=== PATIENT | male | born 1940 ===

== ENCOUNTER 2017-01-17 18:52 | Inpatient (IN) | payer OTHER ==
[2017-01-17 20:05] LABS: BASOPHILS # (AUTO) 0.1 X10^3/uL (0.0-0.1); EOSINOPHILS # (AUTO) 0.3 x10^3/uL (0.0-0.2); EOSINOPHILS % (AUTO) 3.6 % (0.9-2.9); HEMATOCRIT 39.6 % (42.0-54.0); HEMOGLOBIN 13.9 g/dL (13.5-18.0); LYMPHOCYTES # (AUTO) 3.4 X10^3/uL (1.3-2.9); LYMPHOCYTES % (AUTO) 35.2 % (21.0-51.0); MEAN CORPUSCULAR VOLUME 85.6 fL (80.0-100.0); MEAN PLATELET VOLUME 7.7 fL (7.4-11.0); MONOCYTES % (AUTO) 10.7 % (0.0-13.0); NEUTROPHILS # (AUTO) 4.8 x10^3/uL (2.2-4.8); NEUTROPHILS % (AUTO) 49.5 % (42.0-75.0); PLATELET COUNT 231 X10^3/uL (150.0-450.0); RED BLOOD COUNT 4.63 X10^6/uL (4.7-6.0); WHITE BLOOD COUNT 9.6 X10^3/uL (3.6-10.0)
[2017-01-17 20:18] LABS: ALANINE AMINOTRANSFERASE 27 Units/L (12-78); ALBUMIN 3.7 g/dL (3.4-5.0); ALKALINE PHOSPHATASE 62 Units/L (46-116); ASPARTATE AMINO TRANSFERASE 21 Units/L (15-37); BLOOD UREA NITROGEN 18 mg/dL (7-18); CALCIUM 9.3 mg/dL (8.5-10.1); CARBON DIOXIDE 28.5 mmol/L (21-32); CHLORIDE 95 mmol/L (98-107); CREATININE 1.35 mg/dL (0.70-1.30); SODIUM 132 mmol/L (136-145); TOTAL PROTEIN 7.4 g/dL (6.4-8.2); URIC ACID 4.6 mg/dL (3.5-7.2); eGFR BLACK RACES > 60 (>60); eGFR NON BLACK RACES 55 (>60)
[2017-01-17 20:35] VITALS: BMI 29.7
[2017-01-17 20:56] LABS: ERYTHROCYTE SEDIMENTATION RATE 26 MM/HOUR (0-15)
[2017-01-17] MEDS: TYLENOL 325 MG TAB PO PRN (22:27)
[2017-01-18 06:55] LABS: BASOPHILS # (AUTO) 0.1 X10^3/uL (0.0-0.1); BASOPHILS % (AUTO) 0.7 % (0.2-1.0); EOSINOPHILS # (AUTO) 0.3 x10^3/uL (0.0-0.2); EOSINOPHILS % (AUTO) 3.8 % (0.9-2.9); HEMATOCRIT 37.4 % (42.0-54.0); HEMOGLOBIN 13.3 g/dL (13.5-18.0); LYMPHOCYTES # (AUTO) 2.4 X10^3/uL (1.3-2.9); LYMPHOCYTES % (AUTO) 29.4 % (21.0-51.0); MEAN CORPUSCULAR HEMOGLOBIN 29.9 pg (27.0-34.0); MEAN CORPUSCULAR HGB CONC 35.6 g/dL (33.0-35.0); MEAN CORPUSCULAR VOLUME 83.9 fL (80.0-100.0); MEAN PLATELET VOLUME 8.2 fL (7.4-11.0); MONOCYTES # (AUTO) 0.9 x10^3/uL (0.3-0.8); MONOCYTES % (AUTO) 11.8 % (0.0-13.0); NEUTROPHILS # (AUTO) 4.4 x10^3/uL (2.2-4.8); NEUTROPHILS % (AUTO) 54.3 % (42.0-75.0); PLATELET COUNT 216 X10^3/uL (150.0-450.0); RED BLOOD COUNT 4.46 X10^6/uL (4.7-6.0); RED CELL DISTRIBUTION WIDTH 15.1 % (11.6-16.5); WHITE BLOOD COUNT 8.1 X10^3/uL (3.6-10.0)
[2017-01-18 07:04] LABS: ALANINE AMINOTRANSFERASE 25 Units/L (12-78); ALBUMIN 3.4 g/dL (3.4-5.0); ALKALINE PHOSPHATASE 58 Units/L (46-116); ASPARTATE AMINO TRANSFERASE 16 Units/L (15-37); BLOOD UREA NITROGEN 17 mg/dL (7-18); CALCIUM 9.3 mg/dL (8.5-10.1); CARBON DIOXIDE 27.5 mmol/L (21-32); CHLORIDE 98 mmol/L (98-107); CREATININE 1.22 mg/dL (0.70-1.30); SODIUM 134 mmol/L (136-145); TOTAL PROTEIN 7.1 g/dL (6.4-8.2); eGFR BLACK RACES > 60 (>60); eGFR NON BLACK RACES > 60 (>60)
[2017-01-18] MEDS ORDERED: ROCEPHIN VIAL 1 GM 1 GM in NS 50 ML IV + SPIKE MINIBAG* 50 ML IV SCH (09:00)
[2017-01-18] MEDS ORDERED: ROCEPHIN VIAL 1 GM ONE (09:26)
[2017-01-18] MEDS ORDERED: NS 100 ML IV + SPIKE MINIBAG* 100 ML IV ONE (09:27)
[2017-01-18] MEDS ORDERED: NS 250 ML IV 250 ML IV ONE (09:36)
[2017-01-18] MEDS ORDERED: NS 250 ML IV 250 ML IV SCH (10:00)
[2017-01-18] MEDS ORDERED: PHARMACY CONSULT - DOSE _____ XX SCH (12:00)
[2017-01-18] MEDS: MUCOMYST 20% 200 MG/ML PO SCH ×2 (12:13→20:36)
[2017-01-18] MEDS: NS 1000 ML 1,000 ML IV SCH (12:13)
[2017-01-18] MEDS ORDERED: PATIENT'S HOME MEDICATION (Potassium Chloride [Klor-Con 10] 10 MEQ) PO SCH (12:15)
[2017-01-18] MEDS: ASPIRIN EC 81 MG PO SCH (13:33)
[2017-01-18] MEDS: PLAVIX PO SCH (13:34)
[2017-01-18] MEDS: COREG TAB 3.125 MG PO SCH ×2 (13:35→20:30)
[2017-01-18] MEDS: LASIX PO SCH (13:35)
[2017-01-18] MEDS ORDERED: VANCOMYCIN 1 GM PREMIX (ADDVANTAGE) 250 ML IV NR (14:00)
[2017-01-18] MEDS: ZOSYN VIAL 3.375 GM 3.375 GM in NS 100 ML IV + SPIKE MINIBAG* 100 ML IV SCH ×2 (16:11→20:30)
[2017-01-18] MEDS: NORCO 5/325 MG TAB PO PRN (20:30)
[2017-01-18] MEDS: VANCOMYCIN HCL 500 MG VIAL 500 MG in NS 100 ML IV + SPIKE MINIBAG* 100 ML IV SCH (20:30)
[2017-01-18] MEDS: NEURONTIN CAP 100 MG PO SCH (20:37)
--- NOTE | 2017-01-18 21:36 | DR.H&P ---
H&P - History & Physical for Day of: H&P Date: 01/17/17 - Chief Complaint Chief Complaint: RLE REDNESS, WOUND TO 2ND DIGIT RIGHT FOOT - Allergies Allergies/Adverse Reactions: Allergies Allergy/AdvReac Type Severity Reaction Status Date / Time No Known Drug Allergies Allergy Verified 01/17/17 20:08 - History of Present Illness History of Present Illness: IS A 76 YEAR OLD WHITE MALE WHO PRESENTED WITH COMPLAINTS OF RIGHT LOWER EXTREMITY EDEMA, REDNESS, PAIN, AND DRAINAGE. HE ALSO COMPLAINTED OF A WOUND TO THE SECOND DIGIT ON THE RIGHT FOOT. PATIENT REPORTS THAT WOUND HAS BEEN PRESENT FOR THE PAST 3-4 MONTHS. HE REPORTS THAT WOUND HAS RECENTLY STARTED WITH PURULENT DRAINAGE. ON EXAMINATION, LUNGS WERE NOTED CLEAR TO AUSCULTATION. ABDOMEN IS ROUND, SOFT, AND NON-TENDER WITH NORMAL BOWEL SOUNDS NOTED TO ALL QUADRANTS. BILATERAL LOWER EXTREMITIES ARE NOTED WITH 2+ PITTING EDEMA. RIGHT LOWER EXTREMITY NOTED WITH ERRYTHEMA AND CLEAR DRAINAGE. ABRASION NOTED TO SECOND DIGIT ON RIGHT FOOT. PURULENT DRAINAGE NOTED. ON ARRIVAL, VITAL SIGNS WERE 97.8-89-18-99%-110/77. LABS WERE OBTAINED UPON ADMISSION. ABNORMAL LAB VALUES INCLUDE THE FOLLOWING: RBC 4.63, HCT 39.6, EOS% 3.6, LYMPH# 3.4, MONO# 1.0, EOS# 0.3, ESR 26, SODIUM 132, CHLORIDE 95, CREATININE 1.35, GFR 55, TOTAL BILIRUBIN 1.10, CRP 30.50, A/G RATIO 1.0. WOUND CULTURES OF SECOND DIGIT TO RIGHT FOOT WERE OBTAINED AND SENT TO LAB. WE PLANNED TO FOLLOW UP WITH AM LABS AND CONTINUE TO MONITOR PATIENT. - Past Medical History Past Medical History: Arthritis, CHF, Coronary Artery Disease, Diabetes, GERD, Hypertension, Kidney Stones - Past Surgical History Surgical History: No History - Family History Family Medical History: Diabetes Mellitus, Hypertension - Social History Does patient currently use any type of tobacco product: No Have you used tobacco products in the last 12 months: No Type of Tobacco Use: None Does any household member use tobacco: No Alcohol Use: None Drug Use: None - Medications Home Medications: Aspirin EC [ASPIRIN EC 81 MG *] 81 mg PO DAILY 01/17/17 [History Confirmed 01/17] Carvedilol [COREG TAB 3.125 MG *] 3.125 mg PO BID 01/17/17 [History Confirmed ] Clopidogrel Bisulfate [PLAVIX TAB 75 MG *] 75 mg PO DAILY 01/17/17 [History Confirmed 01/17/17] Furosemide [LASIX TAB 40 MG *] 40 mg PO DAILY 01/17/17 [History Confirmed ] Gabapentin [NEURONTIN CAP 100 MG *] 100 mg PO HS 01/17/17 [History Confirmed ] Glimepiride [Glimepiride 2 mg] 2 mg PO BID 01/17/17 [History Confirmed 01/17/17] Lisinopril 2.5 mg PO DAILY 01/17/17 [History Confirmed 01/17/17] Metformin HCl [GLUCOPHAGE 500 MG *] 500 mg PO BID 01/17/17 [History Confirmed ] Potassium Chloride [Klor-Con 10] 10 meq PO DAILY 01/17/17 [History Confirmed ] - Review of Systems Constitutional: Fever Eyes: No Symptoms Reported. denies: Vision Change, Conjunctivae Inflammation, Eyelid Inflammation ENT: No Symptoms Reported. denies: Ear Pain, Ear Discharge, Nose Discharge, Nose Congestion Respiratory: No Symptoms Reported. denies: Shortness of Breath, Sputum, Wheezing Cardiovascular: Edema. denies: Chest Pain, Palpitations, Orthopnea (BILATER LOWER EXTREMITY ), Light Headedness Gastrointestinal: No Symptoms Reported. denies: Nausea, Vomiting, Abdominal Pain, Diarrhea, Constipation, Melena, Hematochezia Genitourinary: No Symptoms Reported Musculoskeletal: See HPI, Leg Pain, Foot Pain. denies: Arm Pain, Back Pain, Hand Pain Skin: See HPI, Lesions, Bruising, Wound. denies: Jaundice Neurological: No Symptoms Reported. denies: Change in Speech, Confusion, Seizures - Physical Exam Vital Signs: Temperature 98.2 F Pulse Rate [Left Dorsalis 96 Pedis] Pulse Rate [Right] 108 Respiratory Rate 20 Blood Pressure [Right Arm] 122/78 O2 Sat by Pulse Oximetry 97 Oriented: Normal Eyes: Normal. negative: Blurred Vision, Diplopia, Discharge, Photophobia Ear: Normal. negative: Swelling, Ecchymosis, Hemotypanum, Abrasion, Laceration Nose: Normal. negative: Discharge Throat: Normal Respiratory: Clear Throughout Cardiovascular: Edema (BIALTERAL LOWER EXTREMITY 2+ PITTING EDMA ) : Normal. negative: Hematuria, Testicular Pain, Bleeding Auscultation: Bowel Sounds: Normal Palpation: Normal Tenderness: Normal Skin: Red, Tender, Wound (RIGHT LOWER EXTREMITY, SECOND DIGIT RIGHT FOOT ), Bruising (SCATTERED ) Musculoskeletal: Normal Psychiatric: Normal Mood Description: Calm Affect: Normal Speech Pattern: Clear - Assessment/Plan (1) Cellulitis of right lower extremity Status: Acute Plan: ROCEPHIN 1GM IV DAILY, CONTINUE TO MONITOR (2) Open wound of second toe of right foot Qualifiers: Encounter type: initial encounter Qualified Code(s): S91.104A - Unspecified open wound of right lesser toe(s) without damage to nail, initial encounter Status: Acute Plan: ROCEPHIN 1GM IV DAILY, WOUND CARE, CONTINUE TO MONITOR
[2017-01-19] MEDS: ZOSYN VIAL 3.375 GM 3.375 GM in NS 100 ML IV + SPIKE MINIBAG* 100 ML IV SCH (03:04)
[2017-01-19] MEDS: NS 1000 ML 1,000 ML IV SCH ×3 (04:30→22:44)
[2017-01-19] MEDS ORDERED: NS 1000 ML 1,000 ML IV ONE (05:00)
[2017-01-19 05:37] LABS: BASOPHILS # (AUTO) 0.1 X10^3/uL (0.0-0.1); EOSINOPHILS # (AUTO) 0.4 x10^3/uL (0.0-0.2); EOSINOPHILS % (AUTO) 5.6 % (0.9-2.9); HEMOGLOBIN 12.5 g/dL (13.5-18.0); LYMPHOCYTES # (AUTO) 1.7 X10^3/uL (1.3-2.9); LYMPHOCYTES % (AUTO) 27.4 % (21.0-51.0); MEAN CORPUSCULAR HEMOGLOBIN 30.2 pg (27.0-34.0); MEAN CORPUSCULAR HGB CONC 35.8 g/dL (33.0-35.0); MEAN CORPUSCULAR VOLUME 84.4 fL (80.0-100.0); MEAN PLATELET VOLUME 7.9 fL (7.4-11.0); MONOCYTES # (AUTO) 0.8 x10^3/uL (0.3-0.8); MONOCYTES % (AUTO) 12.2 % (0.0-13.0); NEUTROPHILS # (AUTO) 3.4 x10^3/uL (2.2-4.8); NEUTROPHILS % (AUTO) 53.8 % (42.0-75.0); PLATELET COUNT 200 X10^3/uL (150.0-450.0); RED BLOOD COUNT 4.15 X10^6/uL (4.7-6.0); RED CELL DISTRIBUTION WIDTH 15.4 % (11.6-16.5); WHITE BLOOD COUNT 6.3 X10^3/uL (3.6-10.0)
[2017-01-19 05:46] LABS: ALANINE AMINOTRANSFERASE 24 Units/L (12-78); ALBUMIN 3.2 g/dL (3.4-5.0); ALKALINE PHOSPHATASE 52 Units/L (46-116); ASPARTATE AMINO TRANSFERASE 18 Units/L (15-37); BLOOD UREA NITROGEN 18 mg/dL (7-18); CALCIUM 8.6 mg/dL (8.5-10.1); CARBON DIOXIDE 26.1 mmol/L (21-32); CHLORIDE 101 mmol/L (98-107); COR CA(FOR HYPOALB) 9.2 mg/dL (8.5-10.1); CREATININE 1.38 mg/dL (0.70-1.30); SODIUM 136 mmol/L (136-145); TOTAL PROTEIN 6.6 g/dL (6.4-8.2); eGFR BLACK RACES > 60 (>60); eGFR NON BLACK RACES 53 (>60)
[2017-01-19] MEDS ORDERED: ZOSYN VIAL 3.375 GM IV ONE (08:12)
[2017-01-19] MEDS ORDERED: NS 100 ML IV + SPIKE MINIBAG* 200 ML IV ONE (08:14)
[2017-01-19] MEDS: VANCOMYCIN HCL 500 MG VIAL 500 MG in NS 100 ML IV + SPIKE MINIBAG* 100 ML IV SCH (08:36)
[2017-01-19] MEDS ORDERED: LISINOPRIL 2.5 MG PO SCH (09:00)
[2017-01-19] MEDS ORDERED: ROCEPHIN VIAL 1 GM 1 GM in NS 100 ML IV + SPIKE MINIBAG* 100 ML IV SCH (09:00)
[2017-01-19] MEDS ORDERED: PHARMACY CONSULT - DOSE _____ XX SCH (10:00)
[2017-01-19] MEDS: MERREM VIAL 1,000 MG in NS 100 ML IV 100 ML IV SCH ×3 (10:29→21:46)
[2017-01-19] MEDS: GENTAMICIN TOPICAL CRM TOP SCH ×2 (10:29→22:02)
[2017-01-19] MEDS ORDERED: NS 100 ML IV 100 ML IV ONE (11:11)
[2017-01-19] MEDS: LASIX PO SCH (14:24)
[2017-01-19] MEDS: PLAVIX PO SCH (14:25)
[2017-01-19] MEDS: MICRO K EXTEN CAP 10 MEQ PO SCH (14:25)
[2017-01-19] MEDS: ZESTRIL TAB 5 MG PO SCH (14:26)
[2017-01-19] MEDS: ASPIRIN EC 81 MG PO SCH (14:26)
[2017-01-19] MEDS: COREG TAB 3.125 MG PO SCH ×2 (14:27→21:47)
[2017-01-19] MEDS: MUCOMYST 20% 200 MG/ML PO SCH ×2 (14:27→21:56)
[2017-01-19] MEDS: NORCO 5/325 MG TAB PO PRN ×2 (16:03→21:57)
--- NOTE | 2017-01-19 17:50 | PCM.PROG ---
Progress Note - Progress Note for Day of Date: 01/18/17 - Subjective Subjective: WAS ADMITTED FOR LOWER EXTREMITY CELLULITIS AND A WOUND TO THE SECOND DIGIT ON THE RIGHT FOOT. TODAY, PATIENT IS ALERT AND ORIENTED, SITTING UP ON SIDE OF BED ON MORNING ROUNDS. PATIENT'S IS AT BEDSIDE. HE CONTINUES WITH COMPLAINTS OF PAIN TO THE RIGHT LEG. ON EXAMINATION, RIGHT LEG IS NOTED WITH ERRYTHEMA. THERE IS PURULENT DRAINAGE NOTED TO WOUND. HIS VITAL SIGNS THIS MORNING ARE 98.1-103-20-97%-117/76. ABNORMAL LAB VALUES INCLUDE THE FOLLOWING: RBC 4.46, HGB 13.3, HCT 37.4, CREATININE 1.38, SODIUM 134. WOUND CULTURE IS PENDING. GRAM STAIN REPORTS MODERATE GROWTH OF GRAM POSITIVE COCCI AND MANY GRAM NEGATIVE DIPLOCOCCI. WE ARE AWAITING FINAL CULTURE REPORT. TODAY, WE WILL DISCONTINUE ROCEPHIN AND START ZOSYN IV AND VANCOMYCIN IV. WE WILL START MUCOMYST 600MG PO BID. TOMORROW MORNING, WE WILL BOLUS PATIENT WITH 1 LITER OF NORMAL SALINE AND OBTAIN A CTA OF BILATERAL LOWER EXTREMITES. WE WILL FOLLOW UP WITH AM LABS AND CONTINUE TO MONITOR PATIENT. - Past Medical Family Social History Past Med/Fam/Surg Hx: No changes since H&P Allergies: Allergies No Known Drug Allergies Allergy (Verified 01/17/17 20:08) - Review of Systems ROS: No change since H&P - Vital Signs and I&O's Vital Signs: Temperature 97.9 F Pulse Rate [Left Dorsalis 96 Pedis] Pulse Rate [Right] 108 Respiratory Rate 20 Blood Pressure [Right Arm] 129/82 O2 Sat by Pulse Oximetry 97 Intake and Output: Intake & Output 01/17/17 01/18/17 01/19/17 01/20/17 11:59 11:59 11:59 11:59 Intake Total 550 2976 220 Balance 550 2976 220 - Physical Exam Oriented: Normal Eyes: Normal. negative: Blurred Vision, Diplopia, Discharge, Photophobia Ear: Normal. negative: Swelling, Ecchymosis, Hemotypanum, Abrasion, Laceration Nose: Normal. negative: Discharge Throat: Normal Respiratory: Normal Cardiovascular: Edema (BIALTERAL LOWER EXTREMITY 2+ PITTING EDMA ) : Normal. negative: Hematuria, Testicular Pain, Bleeding Auscultation: Bowel Sounds: Normal Palpation: Normal Tenderness: Normal Skin: Red, Tender, Wound (RIGHT LOWER EXTREMITY, SECOND DIGIT RIGHT FOOT ), Bruising (SCATTERED ) Musculoskeletal: Normal Psychiatric: Normal Mood Description: Calm Affect: Normal Speech Pattern: Clear, Appropriate - Laboratory and Diagnostics Result Diagrams: 01/19/17 04:30 01/19/17 04:30 Labs: 01/17/17 20:08 Foot - Right Gram Stain - Final 01/17/17 20:08 Foot - Right Wound Culture - Preliminary Pseudomonas Aeruginosa Laboratory WBC 6.3 X10^3/uL (3.6-10.0) 01/19/17 04:30 RBC 4.15 X10^6/uL (4.7-6.0) L 01/19/17 04:30 Hgb 12.5 g/dL (13.5-18.0) L 01/19/17 04:30 Hct 35.0 % (42.0-54.0) L 01/19/17 04:30 MCV 84.4 fL (80.0-100.0) 01/19/17 04:30 MCH 30.2 pg (27.0-34.0) 01/19/17 04:30 MCHC 35.8 g/dL (33.0-35.0) H 01/19/17 04:30 RDW 15.4 % (11.6-16.5) 01/19/17 04:30 Plt Count 200 X10^3/uL (150.0-450.0) 01/19/17 04:30 MPV 7.9 fL (7.4-11.0) 01/19/17 04:30 Neut % 53.8 % (42.0-75.0) 01/19/17 04:30 Lymph % 27.4 % (21.0-51.0) 01/19/17 04:30 [place] % 12.2 % (0.0-13.0) 01/19/17 04:30 Eos % 5.6 % (0.9-2.9) H 01/19/17 04:30 Baso % 1.0 % (0.2-1.0) 01/19/17 04:30 Neut # 3.4 x10^3/uL (2.2-4.8) 01/19/17 04:30 Lymph # 1.7 X10^3/uL (1.3-2.9) 01/19/17 04:30 [place] # 0.8 x10^3/uL (0.3-0.8) 01/19/17 04:30 Eos # 0.4 x10^3/uL (0.0-0.2) H 01/19/17 04:30 Baso # 0.1 X10^3/uL (0.0-0.1) 01/19/17 04:30 Absolute Nucleated RBC 0.0 /100WBC 01/19/17 04:30 ESR 18 MM/HOUR (0-15) H 01/19/17 04:30 Sodium 136 mmol/L (136-145) 01/19/17 04:30 Corrected Sodium TNP 01/19/17 04:30 Potassium 3.9 mmol/L (3.5-5.1) 01/19/17 04:30 Chloride 101 mmol/L (98-107) 01/19/17 04:30 Carbon Dioxide 26.1 mmol/L (21-32) 01/19/17 04:30 BUN 18 mg/dL (7-18) 01/19/17 04:30 Creatinine 1.38 mg/dL (0.70-1.30) H 01/19/17 04:30 Est GFR (MDRD) Af Amer > 60 (>60) 01/19/17 04:30 Est GFR (MDRD) Non-Af 53 (>60) L 01/19/17 04:30 Glucose 105 mg/dL (65-99) H 01/19/17 04:30 POC Glucose (mg/dL) 109 mg/dL (65-99) H 01/19/17 11:51 Uric Acid 4.6 mg/dL (3.5-7.2) 01/17/17 19:54 Calcium 8.6 mg/dL (8.5-10.1) 01/19/17 04:30 Corrected Calcium 9.2 mg/dL (8.5-10.1) 01/19/17 04:30 Total Bilirubin 0.90 mg/dL (0.2-1.0) 01/19/17 04:30 AST 18 Units/L (15-37) 01/19/17 04:30 ALT 24 Units/L (12-78) 01/19/17 04:30 Alkaline Phosphatase 52 Units/L (46-116) 01/19/17 04:30 C-Reactive Protein 28.60 mg/L (0-3.0) H 01/19/17 04:30 Total Protein 6.6 g/dL (6.4-8.2) 01/19/17 04:30 Albumin 3.2 g/dL (3.4-5.0) L 01/19/17 04:30 Globulin 3.4 g/dL (2.5-4.5) 01/19/17 04:30 Albumin/Globulin Ratio 0.9 Ratio (1.1-2.1) L 01/19/17 04:30 - Plan (1) Cellulitis of right lower extremity Status: Acute Plan: ZOSYN IV, VANCOMYCIN IV, OBTAIN CTA OF BILATERAL LOWER EXTREMITIES, CONTINUE TO MONITOR (2) Open wound of second toe of right foot Status: Acute Qualifiers: Encounter type: initial encounter Qualified Code(s): S91.104A - Unspecified open wound of right lesser toe(s) without damage to nail, initial encounter Plan: ZOSYN IV, VANCOMYCIN IV, OBTAIN CTA OF BILATERAL LOWER EXTREMITIES, CONTINUE TO MONITOR
[2017-01-19] MEDS: NEURONTIN CAP 100 MG PO SCH (21:47)
[2017-01-20] MEDS: MERREM VIAL 1,000 MG in NS 100 ML IV 100 ML IV SCH ×3 (05:34→21:18)
[2017-01-20 06:18] LABS: BASOPHILS # (AUTO) 0.1 X10^3/uL (0.0-0.1); EOSINOPHILS # (AUTO) 0.5 x10^3/uL (0.0-0.2); EOSINOPHILS % (AUTO) 7.7 % (0.9-2.9); HEMATOCRIT 35.3 % (42.0-54.0); HEMOGLOBIN 12.3 g/dL (13.5-18.0); LYMPHOCYTES # (AUTO) 1.9 X10^3/uL (1.3-2.9); LYMPHOCYTES % (AUTO) 27.5 % (21.0-51.0); MEAN CORPUSCULAR HEMOGLOBIN 29.7 pg (27.0-34.0); MEAN CORPUSCULAR HGB CONC 34.9 g/dL (33.0-35.0); MEAN CORPUSCULAR VOLUME 85.2 fL (80.0-100.0); MEAN PLATELET VOLUME 7.9 fL (7.4-11.0); MONOCYTES # (AUTO) 0.9 x10^3/uL (0.3-0.8); MONOCYTES % (AUTO) 12.4 % (0.0-13.0); NEUTROPHILS # (AUTO) 3.5 x10^3/uL (2.2-4.8); NEUTROPHILS % (AUTO) 51.4 % (42.0-75.0); PLATELET COUNT 209 X10^3/uL (150.0-450.0); RED BLOOD COUNT 4.14 X10^6/uL (4.7-6.0); RED CELL DISTRIBUTION WIDTH 15.5 % (11.6-16.5); WHITE BLOOD COUNT 6.9 X10^3/uL (3.6-10.0)
[2017-01-20 06:29] LABS: ALANINE AMINOTRANSFERASE 25 Units/L (12-78); ALBUMIN 3.2 g/dL (3.4-5.0); ALKALINE PHOSPHATASE 55 Units/L (46-116); ASPARTATE AMINO TRANSFERASE 21 Units/L (15-37); BLOOD UREA NITROGEN 19 mg/dL (7-18); CALCIUM 8.6 mg/dL (8.5-10.1); CARBON DIOXIDE 28.7 mmol/L (21-32); CHLORIDE 103 mmol/L (98-107); COR CA(FOR HYPOALB) 9.2 mg/dL (8.5-10.1); COR NA(FOR HYPERGLY) 137 mmol/L (136-145); CREATININE 1.39 mg/dL (0.70-1.30); SODIUM 136 mmol/L (136-145); TOTAL PROTEIN 6.6 g/dL (6.4-8.2); eGFR BLACK RACES > 60 (>60); eGFR NON BLACK RACES 53 (>60)
[2017-01-20 07:35] LABS: ERYTHROCYTE SEDIMENTATION RATE 22 MM/HOUR (0-15)
[2017-01-20] MEDS: PLAVIX PO SCH (09:24)
[2017-01-20] MEDS: COREG TAB 3.125 MG PO SCH ×2 (09:24→21:18)
[2017-01-20] MEDS: ZESTRIL TAB 5 MG PO SCH (09:24)
[2017-01-20] MEDS: MICRO K EXTEN CAP 10 MEQ PO SCH (09:25)
[2017-01-20] MEDS: GENTAMICIN TOPICAL CRM TOP SCH ×2 (09:25→21:25)
[2017-01-20] MEDS: ASPIRIN EC 81 MG PO SCH (09:25)
[2017-01-20] MEDS: MUCOMYST 20% 200 MG/ML PO SCH (09:25)
[2017-01-20] MEDS: LASIX PO SCH (09:25)
[2017-01-20] MEDS: NS 1000 ML 1,000 ML IV SCH ×2 (12:06→23:58)
[2017-01-20] MEDS: NORCO 5/325 MG TAB PO PRN (18:49)
[2017-01-20] MEDS: NEURONTIN CAP 100 MG PO SCH ×2 (21:18→21:19)
[2017-01-21] MEDS: MERREM VIAL 1,000 MG in NS 100 ML IV 100 ML IV SCH ×3 (05:26→22:16)
[2017-01-21 06:11] LABS: BASOPHILS # (AUTO) 0.1 X10^3/uL (0.0-0.1); BASOPHILS % (AUTO) 0.8 % (0.2-1.0); EOSINOPHILS # (AUTO) 0.4 x10^3/uL (0.0-0.2); EOSINOPHILS % (AUTO) 4.9 % (0.9-2.9); HEMATOCRIT 36.2 % (42.0-54.0); HEMOGLOBIN 12.6 g/dL (13.5-18.0); LYMPHOCYTES # (AUTO) 2.3 X10^3/uL (1.3-2.9); LYMPHOCYTES % (AUTO) 30.1 % (21.0-51.0); MEAN CORPUSCULAR HEMOGLOBIN 29.8 pg (27.0-34.0); MEAN CORPUSCULAR HGB CONC 34.8 g/dL (33.0-35.0); MEAN CORPUSCULAR VOLUME 85.5 fL (80.0-100.0); MEAN PLATELET VOLUME 8.1 fL (7.4-11.0); NEUTROPHILS # (AUTO) 3.9 x10^3/uL (2.2-4.8); NEUTROPHILS % (AUTO) 51.2 % (42.0-75.0); PLATELET COUNT 213 X10^3/uL (150.0-450.0); RED BLOOD COUNT 4.23 X10^6/uL (4.7-6.0); RED CELL DISTRIBUTION WIDTH 15.1 % (11.6-16.5); WHITE BLOOD COUNT 7.5 X10^3/uL (3.6-10.0)
[2017-01-21 06:39] LABS: ALANINE AMINOTRANSFERASE 44 Units/L (12-78); ALBUMIN 3.3 g/dL (3.4-5.0); ALKALINE PHOSPHATASE 57 Units/L (46-116); ASPARTATE AMINO TRANSFERASE 30 Units/L (15-37); BLOOD UREA NITROGEN 16 mg/dL (7-18); CALCIUM 8.9 mg/dL (8.5-10.1); CARBON DIOXIDE 27.7 mmol/L (21-32); CHLORIDE 101 mmol/L (98-107); COR CA(FOR HYPOALB) 9.5 mg/dL (8.5-10.1); COR NA(FOR HYPERGLY) 137 mmol/L (136-145); CREATININE 1.26 mg/dL (0.70-1.30); SODIUM 136 mmol/L (136-145); TOTAL PROTEIN 6.9 g/dL (6.4-8.2); eGFR BLACK RACES > 60 (>60); eGFR NON BLACK RACES 59 (>60)
[2017-01-21 07:18] LABS: ERYTHROCYTE SEDIMENTATION RATE 25 MM/HOUR (0-15)
[2017-01-21] MEDS: ZESTRIL TAB 5 MG PO SCH (08:55)
[2017-01-21] MEDS: ASPIRIN EC 81 MG PO SCH (08:55)
[2017-01-21] MEDS: MICRO K EXTEN CAP 10 MEQ PO SCH (08:55)
[2017-01-21] MEDS: LASIX PO SCH (08:55)
[2017-01-21] MEDS: COREG TAB 3.125 MG PO SCH ×2 (08:55→22:16)
[2017-01-21] MEDS: PLAVIX PO SCH (08:58)
[2017-01-21] MEDS: GENTAMICIN TOPICAL CRM TOP SCH ×2 (10:29→22:22)
[2017-01-21] MEDS: NORCO 5/325 MG TAB PO PRN ×2 (11:30→22:15)
[2017-01-21] MEDS: NS 1000 ML 1,000 ML IV SCH (15:46)
[2017-01-21] MEDS: NEURONTIN CAP 100 MG PO SCH (22:26)
[2017-01-22] MEDS: NS 1000 ML 1,000 ML IV SCH ×2 (02:09→14:49)
[2017-01-22] MEDS: MERREM VIAL 1,000 MG in NS 100 ML IV 100 ML IV SCH ×3 (05:34→21:15)
[2017-01-22 06:34] LABS: BASOPHILS # (AUTO) 0.1 X10^3/uL (0.0-0.1); BASOPHILS % (AUTO) 0.7 % (0.2-1.0); EOSINOPHILS # (AUTO) 0.4 x10^3/uL (0.0-0.2); EOSINOPHILS % (AUTO) 4.9 % (0.9-2.9); HEMATOCRIT 36.9 % (42.0-54.0); HEMOGLOBIN 12.7 g/dL (13.5-18.0); LYMPHOCYTES # (AUTO) 1.9 X10^3/uL (1.3-2.9); LYMPHOCYTES % (AUTO) 25.7 % (21.0-51.0); MEAN CORPUSCULAR HEMOGLOBIN 29.5 pg (27.0-34.0); MEAN CORPUSCULAR HGB CONC 34.5 g/dL (33.0-35.0); MEAN CORPUSCULAR VOLUME 85.6 fL (80.0-100.0); MEAN PLATELET VOLUME 8.6 fL (7.4-11.0); MONOCYTES # (AUTO) 0.9 x10^3/uL (0.3-0.8); MONOCYTES % (AUTO) 12.6 % (0.0-13.0); NEUTROPHILS # (AUTO) 4.1 x10^3/uL (2.2-4.8); NEUTROPHILS % (AUTO) 56.1 % (42.0-75.0); PLATELET COUNT 212 X10^3/uL (150.0-450.0); RED BLOOD COUNT 4.31 X10^6/uL (4.7-6.0); RED CELL DISTRIBUTION WIDTH 15.2 % (11.6-16.5); WHITE BLOOD COUNT 7.2 X10^3/uL (3.6-10.0)
[2017-01-22 07:09] LABS: ALANINE AMINOTRANSFERASE 52 Units/L (12-78); ALBUMIN 3.3 g/dL (3.4-5.0); ALKALINE PHOSPHATASE 62 Units/L (46-116); BLOOD UREA NITROGEN 18 mg/dL (7-18); CALCIUM 8.9 mg/dL (8.5-10.1); CARBON DIOXIDE 28.7 mmol/L (21-32); CHLORIDE 99 mmol/L (98-107); COR CA(FOR HYPOALB) 9.5 mg/dL (8.5-10.1); COR NA(FOR HYPERGLY) 137 mmol/L (136-145); CREATININE 1.13 mg/dL (0.70-1.30); SODIUM 137 mmol/L (136-145); TOTAL PROTEIN 7.1 g/dL (6.4-8.2); eGFR BLACK RACES > 60 (>60); eGFR NON BLACK RACES > 60 (>60)
[2017-01-22 07:16] LABS: ASPARTATE AMINO TRANSFERASE 51 Units/L (15-37)
[2017-01-22] MEDS: ASPIRIN EC 81 MG PO SCH (09:17)
[2017-01-22] MEDS: MICRO K EXTEN CAP 10 MEQ PO SCH (09:17)
[2017-01-22] MEDS: LASIX PO SCH (09:17)
[2017-01-22] MEDS: ZESTRIL TAB 5 MG PO SCH (09:17)
[2017-01-22] MEDS: GENTAMICIN TOPICAL CRM TOP SCH ×2 (09:18→21:16)
[2017-01-22] MEDS: PLAVIX PO SCH (09:18)
[2017-01-22] MEDS: COREG TAB 3.125 MG PO SCH ×2 (09:18→21:16)
[2017-01-22] MEDS ORDERED: ZOFRAN INJ 4 MG VIAL IVP PRN (14:25)
[2017-01-22] MEDS: NORCO 5/325 MG TAB PO PRN (19:16)
[2017-01-22] MEDS: NEURONTIN CAP 100 MG PO SCH (21:15)
[2017-01-23] MEDS: NORCO 5/325 MG TAB PO PRN ×3 (01:08→21:25)
[2017-01-23 05:28] LABS: BASOPHILS # (AUTO) 0.1 X10^3/uL (0.0-0.1); BASOPHILS % (AUTO) 0.9 % (0.2-1.0); EOSINOPHILS # (AUTO) 0.2 x10^3/uL (0.0-0.2); EOSINOPHILS % (AUTO) 3.3 % (0.9-2.9); HEMATOCRIT 32.7 % (42.0-54.0); HEMOGLOBIN 11.6 g/dL (13.5-18.0); LYMPHOCYTES # (AUTO) 1.5 X10^3/uL (1.3-2.9); LYMPHOCYTES % (AUTO) 20.3 % (21.0-51.0); MEAN CORPUSCULAR HEMOGLOBIN 30.1 pg (27.0-34.0); MEAN CORPUSCULAR HGB CONC 35.4 g/dL (33.0-35.0); MEAN CORPUSCULAR VOLUME 84.9 fL (80.0-100.0); MONOCYTES # (AUTO) 0.8 x10^3/uL (0.3-0.8); MONOCYTES % (AUTO) 10.3 % (0.0-13.0); NEUTROPHILS % (AUTO) 65.2 % (42.0-75.0); PLATELET COUNT 197 X10^3/uL (150.0-450.0); RED BLOOD COUNT 3.86 X10^6/uL (4.7-6.0); WHITE BLOOD COUNT 7.6 X10^3/uL (3.6-10.0)
[2017-01-23 05:37] LABS: ALANINE AMINOTRANSFERASE 47 Units/L (12-78); ALBUMIN 2.8 g/dL (3.4-5.0); ALKALINE PHOSPHATASE 58 Units/L (46-116); ASPARTATE AMINO TRANSFERASE 30 Units/L (15-37); BLOOD UREA NITROGEN 18 mg/dL (7-18); CALCIUM 8.4 mg/dL (8.5-10.1); CARBON DIOXIDE 26.1 mmol/L (21-32); CHLORIDE 102 mmol/L (98-107); COR CA(FOR HYPOALB) 9.4 mg/dL (8.5-10.1); COR NA(FOR HYPERGLY) 132 mmol/L (136-145); CREATININE 1.14 mg/dL (0.70-1.30); SODIUM 131 mmol/L (136-145); eGFR BLACK RACES > 60 (>60); eGFR NON BLACK RACES > 60 (>60)
[2017-01-23] MEDS: TYLENOL 325 MG TAB PO PRN (06:02)
[2017-01-23] MEDS: NS 1000 ML 1,000 ML IV SCH ×2 (06:03→14:23)
[2017-01-23] MEDS: MERREM VIAL 1,000 MG in NS 100 ML IV 100 ML IV SCH ×3 (06:03→21:34)
[2017-01-23] MEDS: LASIX PO SCH (09:24)
[2017-01-23] MEDS: ASPIRIN EC 81 MG PO SCH (09:24)
[2017-01-23] MEDS: MICRO K EXTEN CAP 10 MEQ PO SCH (09:24)
[2017-01-23] MEDS: COREG TAB 3.125 MG PO SCH ×2 (09:24→21:25)
[2017-01-23] MEDS: GENTAMICIN TOPICAL CRM TOP SCH ×2 (09:25→21:34)
[2017-01-23] MEDS: PLAVIX PO SCH (09:25)
[2017-01-23] MEDS: ZESTRIL TAB 5 MG PO SCH (09:25)
[2017-01-23] MEDS: NEURONTIN CAP 100 MG PO SCH (21:25)
[2017-01-24] MEDS: NORCO 5/325 MG TAB PO PRN ×2 (04:55→23:00)
[2017-01-24 05:25] LABS: ALANINE AMINOTRANSFERASE 42 Units/L (12-78); ALBUMIN 3.1 g/dL (3.4-5.0); ALKALINE PHOSPHATASE 63 Units/L (46-116); ASPARTATE AMINO TRANSFERASE 21 Units/L (15-37); BLOOD UREA NITROGEN 20 mg/dL (7-18); CALCIUM 8.7 mg/dL (8.5-10.1); CHLORIDE 97 mmol/L (98-107); COR CA(FOR HYPOALB) 9.4 mg/dL (8.5-10.1); COR NA(FOR HYPERGLY) 133 mmol/L (136-145); SODIUM 132 mmol/L (136-145); TOTAL PROTEIN 6.5 g/dL (6.4-8.2); eGFR BLACK RACES > 60 (>60); eGFR NON BLACK RACES > 60 (>60)
[2017-01-24 05:47] LABS: BASOPHILS # (AUTO) 0.1 X10^3/uL (0.0-0.1); BASOPHILS % (AUTO) 1.1 % (0.2-1.0); EOSINOPHILS # (AUTO) 0.5 x10^3/uL (0.0-0.2); EOSINOPHILS % (AUTO) 6.3 % (0.9-2.9); HEMATOCRIT 35.4 % (42.0-54.0); HEMOGLOBIN 12.3 g/dL (13.5-18.0); LYMPHOCYTES # (AUTO) 1.3 X10^3/uL (1.3-2.9); LYMPHOCYTES % (AUTO) 18.7 % (21.0-51.0); MEAN CORPUSCULAR HEMOGLOBIN 29.9 pg (27.0-34.0); MEAN CORPUSCULAR HGB CONC 34.8 g/dL (33.0-35.0); MONOCYTES # (AUTO) 0.9 x10^3/uL (0.3-0.8); MONOCYTES % (AUTO) 12.2 % (0.0-13.0); NEUTROPHILS # (AUTO) 4.4 x10^3/uL (2.2-4.8); NEUTROPHILS % (AUTO) 61.7 % (42.0-75.0); PLATELET COUNT 205 X10^3/uL (150.0-450.0); RED BLOOD COUNT 4.12 X10^6/uL (4.7-6.0); RED CELL DISTRIBUTION WIDTH 15.1 % (11.6-16.5); WHITE BLOOD COUNT 7.2 X10^3/uL (3.6-10.0)
[2017-01-24] MEDS: MERREM VIAL 1,000 MG in NS 100 ML IV 100 ML IV SCH ×3 (06:44→22:23)
--- NOTE | 2017-01-24 08:20 | PCM.PROG ---
Progress Note - Progress Note for Day of Date: 01/19/17 - Subjective Subjective: WAS ADMITTED FOR LOWER EXTREMITY CELLULITIS AND A WOUND TO THE SECOND DIGIT ON THE RIGHT FOOT. TODAY, PATIENT IS ALERT AND ORIENTED, SITTING UP ON SIDE OF BED ON MORNING ROUNDS. PATIENT'S IS AT BEDSIDE. HE CONTINUES WITH RIGHT FOOT PAIN. ON EXAMINATION, RIGHT LEG IS NOTED WITH ERRYTHEMA AND A WOUND TO THE SECOND DIGIT. WOUND CONTINUES WITH SEROSANGUINEOUS DRAINAGE. HIS VITAL SIGNS THIS MORNING ARE 98.5-95-20-97%-115/71. ABNORMAL LAB VALUES INCLUDE THE FOLLOWING: RBC 4.15, HGB 12.5, HCT 35, CREATININE 1.38, SODIUM 131, GLUCOSE 150, CALCIUM 8.4, TOTAL PROTEIN 6.0, ALBUMIN 2.8. WOUND CULTURE REPORTS GROWTH OF PSEUDOMONAS AERUGINOSA. GRAM STAIN REPORTS MODERATE GROWTH OF GRAM POSITIVE COCCI AND MANY GRAM NEGATIVE DIPLOCOCCI. A CTA OF THE LOWER EXTREMITIES WILL BE OBTAINED THIS MORNING. TODAY, WE WILL DISCONTINUE THE ZOSYN AND VANCOMYCIN AND START MEROPENEM 1GM IV Q8H FOR THE GROWTH OF PSEUDOMONAS. WE WILL FOLLOW UP WITH AM LABS AND CONTINUE TO MONITOR PATIENT. - Past Medical Family Social History Past Med/Fam/Surg Hx: No changes since H&P Allergies: Allergies No Known Drug Allergies Allergy (Verified 01/17/17 20:08) - Review of Systems ROS: No change since H&P - Vital Signs and I&O's Vital Signs: Temperature 98.9 F Pulse Rate [Radial] 89 Pulse Rate [Left Dorsalis 84 Pedis] Pulse Rate [Right] 96 Respiratory Rate 20 Blood Pressure [Right Arm] 105/63 O2 Sat by Pulse Oximetry 93 Intake and Output: Intake & Output 01/21/17 01/22/17 01/23/17 01/24/17 11:59 11:59 11:59 11:59 Intake Total 2890 1194 2376 1340 Balance 2890 1194 2376 1340 - Physical Exam Oriented: Normal Eyes: Normal. negative: Blurred Vision, Diplopia, Discharge, Photophobia Ear: Normal. negative: Swelling, Ecchymosis, Hemotypanum, Abrasion, Laceration Nose: Normal. negative: Discharge Throat: Normal Respiratory: Normal Cardiovascular: Edema (BIALTERAL LOWER EXTREMITY 2+ PITTING EDMA ) : Normal. negative: Hematuria, Testicular Pain, Bleeding Auscultation: Bowel Sounds: Normal Palpation: Normal Tenderness: Normal Skin: Red, Tender, Wound (RIGHT LOWER EXTREMITY, SECOND DIGIT RIGHT FOOT ), Bruising (SCATTERED ) Musculoskeletal: Normal Psychiatric: Normal Mood Description: Calm Affect: Normal Speech Pattern: Clear, Appropriate - Laboratory and Diagnostics Result Diagrams: 01/24/17 03:45 01/24/17 03:45 Labs: 01/17/17 20:08 Foot - Right Gram Stain - Final 01/17/17 20:08 Foot - Right Wound Culture - Final Pseudomonas Aeruginosa Klebsiella Oxytoca Laboratory WBC 7.2 X10^3/uL (3.6-10.0) 01/24/17 03:45 RBC 4.12 X10^6/uL (4.7-6.0) L 01/24/17 03:45 Hgb 12.3 g/dL (13.5-18.0) L 01/24/17 03:45 Hct 35.4 % (42.0-54.0) L 01/24/17 03:45 MCV 86.0 fL (80.0-100.0) 01/24/17 03:45 MCH 29.9 pg (27.0-34.0) 01/24/17 03:45 MCHC 34.8 g/dL (33.0-35.0) 01/24/17 03:45 RDW 15.1 % (11.6-16.5) 01/24/17 03:45 Plt Count 205 X10^3/uL (150.0-450.0) 01/24/17 03:45 MPV 8.0 fL (7.4-11.0) 01/24/17 03:45 Neut % 61.7 % (42.0-75.0) 01/24/17 03:45 Lymph % 18.7 % (21.0-51.0) L 01/24/17 03:45 [place] % 12.2 % (0.0-13.0) 01/24/17 03:45 Eos % 6.3 % (0.9-2.9) H 01/24/17 03:45 Baso % 1.1 % (0.2-1.0) H 01/24/17 03:45 Neut # 4.4 x10^3/uL (2.2-4.8) 01/24/17 03:45 Lymph # 1.3 X10^3/uL (1.3-2.9) 01/24/17 03:45 [place] # 0.9 x10^3/uL (0.3-0.8) H 01/24/17 03:45 Eos # 0.5 x10^3/uL (0.0-0.2) H 01/24/17 03:45 Baso # 0.1 X10^3/uL (0.0-0.1) 01/24/17 03:45 Absolute Nucleated RBC 0.2 /100WBC 01/24/17 03:45 ESR 25 MM/HOUR (0-15) H 01/21/17 05:12 Sodium 132 mmol/L (136-145) L 01/24/17 03:45 Corrected Sodium 133 mmol/L (136-145) L 01/24/17 03:45 Potassium 4.0 mmol/L (3.5-5.1) 01/24/17 03:45 Chloride 97 mmol/L (98-107) L 01/24/17 03:45 Carbon Dioxide 27.0 mmol/L (21-32) 01/24/17 03:45 BUN 20 mg/dL (7-18) H 01/24/17 03:45 Creatinine 1.20 mg/dL (0.70-1.30) 01/24/17 03:45 Est GFR (MDRD) Af Amer > 60 (>60) 01/24/17 03:45 Est GFR (MDRD) Non-Af > 60 (>60) 01/24/17 03:45 Glucose 131 mg/dL (65-99) H 01/24/17 03:45 POC Glucose (mg/dL) 145 mg/dL (65-99) H 01/24/17 05:42 Uric Acid 4.6 mg/dL (3.5-7.2) 01/17/17 19:54 Calcium 8.7 mg/dL (8.5-10.1) 01/24/17 03:45 Corrected Calcium 9.4 mg/dL (8.5-10.1) 01/24/17 03:45 Total Bilirubin 0.80 mg/dL (0.2-1.0) 01/24/17 03:45 AST 21 Units/L (15-37) 01/24/17 03:45 ALT 42 Units/L (12-78) 01/24/17 03:45 Alkaline Phosphatase 63 Units/L (46-116) 01/24/17 03:45 C-Reactive Protein 25.10 mg/L (0-3.0) H 01/21/17 05:12 Total Protein 6.5 g/dL (6.4-8.2) 01/24/17 03:45 Albumin 3.1 g/dL (3.4-5.0) L 01/24/17 03:45 Globulin 3.4 g/dL (2.5-4.5) 01/24/17 03:45 Albumin/Globulin Ratio 0.9 Ratio (1.1-2.1) L 01/24/17 03:45 - Plan (1) Cellulitis of right lower extremity Status: Acute Plan: MEROPENEM 1GM IV Q8H, OBTAIN CTA OF BILATERAL LOWER EXTREMITIES, CONTINUE TO MONITOR (2) Open wound of second toe of right foot Status: Acute Qualifiers: Encounter type: initial encounter Qualified Code(s): S91.104A - Unspecified open wound of right lesser toe(s) without damage to nail, initial encounter Plan: MEROPENEM 1GM IV Q8H, OBTAIN CTA OF BILATERAL LOWER EXTREMITIES, CONTINUE TO MONITOR (3) Coronary artery disease Status: Chronic Qualifiers: Coronary Disease-Associated Artery/Lesion type: [place] artery [place] vs. transplanted heart: [place] heart Associated angina: with unspecified angina Qualified Code(s): I25.119 - Atherosclerotic heart disease of [place] coronary artery with unspecified angina pectoris Plan: CONTINUE ASPIRIN 81MG DAILY, CONTINUE PLAVIX DAILY, CONTINUE TO MONITOR (4) Hypertension Status: Acute Qualifiers: Hypertension type: essential hypertension Qualified Code(s): I10 - Essential (primary) hypertension Plan: CONTINUE COREG 3.125MG BID, CONTINUE ZESTRIL 2.5MG PO DAILY, CONTINUE TO MONITOR (5) Hypokalemia Status: Acute Plan: CONTINUE MICRO K 10MEQ DAILY, CONTINUE TO MONITOR
--- NOTE | 2017-01-24 08:30 | PCM.PROG ---
Progress Note - Progress Note for Day of Date: 01/20/17 - Subjective Subjective: WAS ADMITTED FOR LOWER EXTREMITY CELLULITIS AND A WOUND TO THE SECOND DIGIT ON THE RIGHT FOOT. TODAY, PATIENT IS ALERT AND ORIENTED, SITTING UP ON SIDE OF BED ON MORNING ROUNDS. PATIENT'S IS AT BEDSIDE. HE CONTINUES WITH RIGHT FOOT PAIN. ON EXAMINATION, RIGHT LEG CONTINUES WITH ERRYTHEMA AND A WOUND TO THE SECOND DIGIT. WOUND CONTINUES WITH SEROSANGUINEOUS DRAINAGE. HIS VITAL SIGNS THIS MORNING ARE 100.4-98-20-95%-116/75. ABNORMAL LAB VALUES INCLUDE THE FOLLOWING: RBC 4.14, HGB 12.3, HCT 35.3, BUN 19, CREATININE 1.39, GLUCOSE 135, ALBUMIN 3.2, CRP 27.80, ESR 22. TODAY, WOUND CULTURE REPORTS GROWTH OF KLEBSIELLA OXYTOCA IN ADDITION TO THE PSEUDOMONAS AERUGINOSA. IT IS SENSTIVIE TO MEROPENEM WELL. A CTA OF THE LOWER EXTREMITIES WAS OBTAINED YESTERDAY. A REPORT WAS NOT BACK PRIOR TO MORNING ROUNDS. TODAY, WE PLAN TO CONTINUE WITH CURRENT PLAN OF CARE. WE WILL FOLLOW UP WITH AM LABS AND CONTINUE TO MONITOR PATIENT. - Past Medical Family Social History Past Med/Fam/Surg Hx: No changes since H&P Allergies: Allergies No Known Drug Allergies Allergy (Verified 01/17/17 20:08) - Review of Systems ROS: No change since H&P - Vital Signs and I&O's Vital Signs: Temperature 98.9 F Pulse Rate [Radial] 89 Pulse Rate [Left Dorsalis 84 Pedis] Pulse Rate [Right] 96 Respiratory Rate 20 Blood Pressure [Right Arm] 105/63 O2 Sat by Pulse Oximetry 93 Intake and Output: Intake & Output 01/21/17 01/22/17 01/23/17 01/24/17 11:59 11:59 11:59 11:59 Intake Total 2890 1194 2376 1340 Balance 2890 1194 2376 1340 - Physical Exam Oriented: Normal Eyes: Normal. negative: Blurred Vision, Diplopia, Discharge, Photophobia Ear: Normal. negative: Swelling, Ecchymosis, Hemotypanum, Abrasion, Laceration Nose: Normal. negative: Discharge Throat: Normal Respiratory: Normal Cardiovascular: Edema (BIALTERAL LOWER EXTREMITY 2+ PITTING EDMA ) : Normal. negative: Hematuria, Testicular Pain, Bleeding Auscultation: Bowel Sounds: Normal Tenderness: Normal Skin: Red, Tender, Wound (RIGHT LOWER EXTREMITY, SECOND DIGIT RIGHT FOOT ), Bruising (SCATTERED ) Musculoskeletal: Normal Psychiatric: Normal Mood Description: Calm Affect: Normal Speech Pattern: Clear, Appropriate - Laboratory and Diagnostics Result Diagrams: 01/24/17 03:45 01/24/17 03:45 Labs: 01/17/17 20:08 Foot - Right Gram Stain - Final 01/17/17 20:08 Foot - Right Wound Culture - Final Pseudomonas Aeruginosa Klebsiella Oxytoca Laboratory WBC 7.2 X10^3/uL (3.6-10.0) 01/24/17 03:45 RBC 4.12 X10^6/uL (4.7-6.0) L 01/24/17 03:45 Hgb 12.3 g/dL (13.5-18.0) L 01/24/17 03:45 Hct 35.4 % (42.0-54.0) L 01/24/17 03:45 MCV 86.0 fL (80.0-100.0) 01/24/17 03:45 MCH 29.9 pg (27.0-34.0) 01/24/17 03:45 MCHC 34.8 g/dL (33.0-35.0) 01/24/17 03:45 RDW 15.1 % (11.6-16.5) 01/24/17 03:45 Plt Count 205 X10^3/uL (150.0-450.0) 01/24/17 03:45 MPV 8.0 fL (7.4-11.0) 01/24/17 03:45 Neut % 61.7 % (42.0-75.0) 01/24/17 03:45 Lymph % 18.7 % (21.0-51.0) L 01/24/17 03:45 [place] % 12.2 % (0.0-13.0) 01/24/17 03:45 Eos % 6.3 % (0.9-2.9) H 01/24/17 03:45 Baso % 1.1 % (0.2-1.0) H 01/24/17 03:45 Neut # 4.4 x10^3/uL (2.2-4.8) 01/24/17 03:45 Lymph # 1.3 X10^3/uL (1.3-2.9) 01/24/17 03:45 [place] # 0.9 x10^3/uL (0.3-0.8) H 01/24/17 03:45 Eos # 0.5 x10^3/uL (0.0-0.2) H 01/24/17 03:45 Baso # 0.1 X10^3/uL (0.0-0.1) 01/24/17 03:45 Absolute Nucleated RBC 0.2 /100WBC 01/24/17 03:45 ESR 25 MM/HOUR (0-15) H 01/21/17 05:12 Sodium 132 mmol/L (136-145) L 01/24/17 03:45 Corrected Sodium 133 mmol/L (136-145) L 01/24/17 03:45 Potassium 4.0 mmol/L (3.5-5.1) 01/24/17 03:45 Chloride 97 mmol/L (98-107) L 01/24/17 03:45 Carbon Dioxide 27.0 mmol/L (21-32) 01/24/17 03:45 BUN 20 mg/dL (7-18) H 01/24/17 03:45 Creatinine 1.20 mg/dL (0.70-1.30) 01/24/17 03:45 Est GFR (MDRD) Af Amer > 60 (>60) 01/24/17 03:45 Est GFR (MDRD) Non-Af > 60 (>60) 01/24/17 03:45 Glucose 131 mg/dL (65-99) H 01/24/17 03:45 POC Glucose (mg/dL) 145 mg/dL (65-99) H 01/24/17 05:42 Uric Acid 4.6 mg/dL (3.5-7.2) 01/17/17 19:54 Calcium 8.7 mg/dL (8.5-10.1) 01/24/17 03:45 Corrected Calcium 9.4 mg/dL (8.5-10.1) 01/24/17 03:45 Total Bilirubin 0.80 mg/dL (0.2-1.0) 01/24/17 03:45 AST 21 Units/L (15-37) 01/24/17 03:45 ALT 42 Units/L (12-78) 01/24/17 03:45 Alkaline Phosphatase 63 Units/L (46-116) 01/24/17 03:45 C-Reactive Protein 25.10 mg/L (0-3.0) H 01/21/17 05:12 Total Protein 6.5 g/dL (6.4-8.2) 01/24/17 03:45 Albumin 3.1 g/dL (3.4-5.0) L 01/24/17 03:45 Globulin 3.4 g/dL (2.5-4.5) 01/24/17 03:45 Albumin/Globulin Ratio 0.9 Ratio (1.1-2.1) L 01/24/17 03:45 - Plan (1) Cellulitis of right lower extremity Status: Acute Plan: MEROPENEM 1GM IV Q8H, OBTAIN CTA OF BILATERAL LOWER EXTREMITIES, CONTINUE TO MONITOR (2) Open wound of second toe of right foot Status: Acute Qualifiers: Encounter type: initial encounter Qualified Code(s): S91.104A - Unspecified open wound of right lesser toe(s) without damage to nail, initial encounter Plan: MEROPENEM 1GM IV Q8H, OBTAIN CTA OF BILATERAL LOWER EXTREMITIES, CONTINUE TO MONITOR (3) Pseudomonas aeruginosa infection Status: Acute Plan: MEROPENEM 1GM IV Q8H, CONTINUE TO MONITOR (4) Infection with ESBL Klebsiella oxytoca Status: Acute Plan: MEROPENEM 1GM IV Q8H, CONTINUE TO MONITOR (5) Hypertension Status: Acute Qualifiers: Hypertension type: essential hypertension Qualified Code(s): I10 - Essential (primary) hypertension Plan: CONTINUE COREG 3.125MG BID, CONTINUE ZESTRIL 2.5MG PO DAILY, CONTINUE TO MONITOR (6) Hypokalemia Status: Chronic Plan: CONTINUE MICRO K 10MEQ DAILY, CONTINUE TO MONITOR (7) Coronary artery disease Status: Chronic Qualifiers: Coronary Disease-Associated Artery/Lesion type: [place] artery [place] vs. transplanted heart: [place] heart Associated angina: with unspecified angina Qualified Code(s): I25.119 - Atherosclerotic heart disease of [place] coronary artery with unspecified angina pectoris Plan: CONTINUE ASPIRIN 81MG DAILY, CONTINUE PLAVIX DAILY, CONTINUE TO MONITOR
[2017-01-24] MEDS: ASPIRIN EC 81 MG PO SCH (09:45)
[2017-01-24] MEDS: PLAVIX PO SCH (09:46)
[2017-01-24] MEDS: LASIX PO SCH (09:46)
[2017-01-24] MEDS: MICRO K EXTEN CAP 10 MEQ PO SCH (09:46)
[2017-01-24] MEDS: GENTAMICIN TOPICAL CRM TOP SCH ×2 (09:46→22:24)
[2017-01-24] MEDS: ZESTRIL TAB 5 MG PO SCH (09:46)
[2017-01-24] MEDS: COREG TAB 3.125 MG PO SCH ×2 (09:46→22:23)
--- NOTE | 2017-01-24 11:16 | PCM.PROG ---
Progress Note - Progress Note for Day of Date: 01/21/17 - Subjective Subjective: WAS ADMITTED FOR LOWER EXTREMITY CELLULITIS AND A WOUND TO THE SECOND DIGIT ON THE RIGHT FOOT. TODAY, PATIENT IS ALERT AND ORIENTED, SITTING UP ON SIDE OF BED ON MORNING ROUNDS. PATIENT'S IS AT BEDSIDE. HE CONTINUES WITH COMPLAINTS OF CONSTANT PAIN TO THE RIGHT FOOT. ON EXAMINATION, RIGHT LEG CONTINUES WITH ERRYTHEMA AND SEROSANGUINEOUS DRAINAGE TO WOUND ON THE SECOND DIGIT. PATIENT IS ENCOURAGED TO LEAVE DRESSING TO HIS FOOT INTACT. HIS VITAL SIGNS THIS MORNING ARE 99.0-100-18-96%-127/82. ABNORMAL LAB VALUES INCLUDE THE FOLLOWING: RBC 4.23, HGB 12.6, HCT 36.2, GLUCOSE 130, ALBUMIN 3.3, CRP 25.10, ESR 25. CTA REPORT IS BACK THIS MORNING AND REPORTS LIMITED EXAM BY OVERALL SUBOPTIMAL CONTRAST BOLUS WITH LOIMITED EVALUATION OF THE BILATERAL DISTAL SFAs. ARTERIAL ULTRASOUND CAN PROVIDE FURTHER CHARACTERIZATION. OCCLUDED RIGHT POPLITEAL ARTERY WITH MINIMAL 2 VESSEL RUNOFF TO THE RIGHT ANKLE WITHIN THE PERONEAL AND POSTERIOR TIBIAL ARTERIES. OCCLUDED LEFT POPLITEAL ARTERY WITH SINGLE VESSEL RUNOFF TO THE LEFT ANKLE WITHIN THE ANTERIOR TIBIAL ARTERY. PATIENT IS CURRENTLY TAKING ASPIRIN AND PLAVIX DAILY. TODAY, WE PLAN TO CONTINUE WITH IV ANTIBIOTICS OVER THE WEEKEND AND REEVALUATE PATIENT ON TUESDAY. OUTPATIENT FOLLOW UP WITH A VASCULAR SURGEON WILL BE NEEDED. WE WILL FOLLOW UP WITH AM LABS AND CONTINUE TO MONITOR PATIENT. - Past Medical Family Social History Past Med/Fam/Surg Hx: No changes since H&P Allergies: Allergies No Known Drug Allergies Allergy (Verified 01/17/17 20:08) - Review of Systems ROS: No change since H&P - Vital Signs and I&O's Vital Signs: Temperature 98.9 F Pulse Rate [Radial] 89 Pulse Rate [Left Dorsalis 84 Pedis] Pulse Rate [Right] 96 Respiratory Rate 20 Blood Pressure [Right Arm] 105/63 O2 Sat by Pulse Oximetry 93 Intake and Output: Intake & Output 01/21/17 01/22/17 01/23/17 01/24/17 11:59 11:59 11:59 11:59 Intake Total 2890 1194 2376 1340 Balance 2890 1194 2376 1340 - Physical Exam Oriented: Normal Eyes: Normal. negative: Blurred Vision, Diplopia, Discharge, Photophobia Ear: Normal. negative: Swelling, Ecchymosis, Hemotypanum, Abrasion, Laceration Nose: Normal. negative: Discharge Throat: Normal Respiratory: Normal Cardiovascular: Edema (BIALTERAL LOWER EXTREMITY 2+ PITTING EDMA ) : Normal. negative: Hematuria, Testicular Pain, Bleeding Auscultation: Bowel Sounds: Normal Palpation: Normal Tenderness: Normal Skin: Red, Tender, Wound (RIGHT LOWER EXTREMITY, SECOND DIGIT RIGHT FOOT ), Bruising (SCATTERED ) Musculoskeletal: Right, Leg, Foot, Swelling, Tender Psychiatric: Normal Mood Description: Calm Affect: Normal Speech Pattern: Clear, Appropriate - Laboratory and Diagnostics Result Diagrams: 01/24/17 03:45 01/24/17 03:45 Labs: 01/17/17 20:08 Foot - Right Gram Stain - Final 01/17/17 20:08 Foot - Right Wound Culture - Final Pseudomonas Aeruginosa Klebsiella Oxytoca Laboratory WBC 7.2 X10^3/uL (3.6-10.0) 01/24/17 03:45 RBC 4.12 X10^6/uL (4.7-6.0) L 01/24/17 03:45 Hgb 12.3 g/dL (13.5-18.0) L 01/24/17 03:45 Hct 35.4 % (42.0-54.0) L 01/24/17 03:45 MCV 86.0 fL (80.0-100.0) 01/24/17 03:45 MCH 29.9 pg (27.0-34.0) 01/24/17 03:45 MCHC 34.8 g/dL (33.0-35.0) 01/24/17 03:45 RDW 15.1 % (11.6-16.5) 01/24/17 03:45 Plt Count 205 X10^3/uL (150.0-450.0) 01/24/17 03:45 MPV 8.0 fL (7.4-11.0) 01/24/17 03:45 Neut % 61.7 % (42.0-75.0) 01/24/17 03:45 Lymph % 18.7 % (21.0-51.0) L 01/24/17 03:45 Gregory % 12.2 % (0.0-13.0) 01/24/17 03:45 Eos % 6.3 % (0.9-2.9) H 01/24/17 03:45 Baso % 1.1 % (0.2-1.0) H 01/24/17 03:45 Neut # 4.4 x10^3/uL (2.2-4.8) 01/24/17 03:45 Lymph # 1.3 X10^3/uL (1.3-2.9) 01/24/17 03:45 Gregory # 0.9 x10^3/uL (0.3-0.8) H 01/24/17 03:45 Eos # 0.5 x10^3/uL (0.0-0.2) H 01/24/17 03:45 Baso # 0.1 X10^3/uL (0.0-0.1) 01/24/17 03:45 Absolute Nucleated RBC 0.2 /100WBC 01/24/17 03:45 ESR 25 MM/HOUR (0-15) H 01/21/17 05:12 Sodium 132 mmol/L (136-145) L 01/24/17 03:45 Corrected Sodium 133 mmol/L (136-145) L 01/24/17 03:45 Potassium 4.0 mmol/L (3.5-5.1) 01/24/17 03:45 Chloride 97 mmol/L (98-107) L 01/24/17 03:45 Carbon Dioxide 27.0 mmol/L (21-32) 01/24/17 03:45 BUN 20 mg/dL (7-18) H 01/24/17 03:45 Creatinine 1.20 mg/dL (0.70-1.30) 01/24/17 03:45 Est GFR (MDRD) Af Amer > 60 (>60) 01/24/17 03:45 Est GFR (MDRD) Non-Af > 60 (>60) 01/24/17 03:45 Glucose 131 mg/dL (65-99) H 01/24/17 03:45 POC Glucose (mg/dL) 145 mg/dL (65-99) H 01/24/17 05:42 Uric Acid 4.6 mg/dL (3.5-7.2) 01/17/17 19:54 Calcium 8.7 mg/dL (8.5-10.1) 01/24/17 03:45 Corrected Calcium 9.4 mg/dL (8.5-10.1) 01/24/17 03:45 Total Bilirubin 0.80 mg/dL (0.2-1.0) 01/24/17 03:45 AST 21 Units/L (15-37) 01/24/17 03:45 ALT 42 Units/L (12-78) 01/24/17 03:45 Alkaline Phosphatase 63 Units/L (46-116) 01/24/17 03:45 C-Reactive Protein 25.10 mg/L (0-3.0) H 01/21/17 05:12 Total Protein 6.5 g/dL (6.4-8.2) 01/24/17 03:45 Albumin 3.1 g/dL (3.4-5.0) L 01/24/17 03:45 Globulin 3.4 g/dL (2.5-4.5) 01/24/17 03:45 Albumin/Globulin Ratio 0.9 Ratio (1.1-2.1) L 01/24/17 03:45 - Plan (1) Cellulitis of right lower extremity Status: Acute Plan: MEROPENEM 1GM IV Q8H, OBTAIN CTA OF BILATERAL LOWER EXTREMITIES, CONTINUE TO MONITOR (2) Open wound of second toe of right foot Status: Acute Qualifiers: Encounter type: initial encounter Qualified Code(s): S91.104A - Unspecified open wound of right lesser toe(s) without damage to nail, initial encounter Plan: MEROPENEM 1GM IV Q8H, OBTAIN CTA OF BILATERAL LOWER EXTREMITIES, CONTINUE TO MONITOR (3) Pseudomonas aeruginosa infection Status: Acute Plan: MEROPENEM 1GM IV Q8H, CONTINUE TO MONITOR (4) Infection with ESBL Klebsiella oxytoca Status: Acute Plan: MEROPENEM 1GM IV Q8H, CONTINUE TO MONITOR (5) Hypertension Status: Acute Qualifiers: Hypertension type: essential hypertension Qualified Code(s): I10 - Essential (primary) hypertension Plan: CONTINUE COREG 3.125MG BID, CONTINUE ZESTRIL 2.5MG PO DAILY, CONTINUE TO MONITOR (6) Hypokalemia Status: Chronic Plan: CONTINUE MICRO K 10MEQ DAILY, CONTINUE TO MONITOR (7) Coronary artery disease Status: Chronic Qualifiers: Coronary Disease-Associated Artery/Lesion type: [place] artery [place] vs. transplanted heart: [place] heart Associated angina: with unspecified angina Qualified Code(s): I25.119 - Atherosclerotic heart disease of [place] coronary artery with unspecified angina pectoris Plan: CONTINUE ASPIRIN 81MG DAILY, CONTINUE PLAVIX DAILY, CONTINUE TO MONITOR
[2017-01-24] MEDS: NS 1000 ML 1,000 ML IV SCH ×2 (18:00→22:57)
--- NOTE | 2017-01-24 21:53 | PCM.PROG ---
Progress Note - Progress Note for Day of Date: 01/24/17 - Subjective Subjective: WAS ADMITTED FOR LOWER EXTREMITY CELLULITIS AND A WOUND TO THE SECOND DIGIT ON THE RIGHT FOOT. TODAY, PATIENT IS ALERT AND ORIENTED, SITTING UP ON SIDE OF BED ON MORNING ROUNDS. PATIENT'S IS AT BEDSIDE. HE CONTINUES WITH COMPLAINTS OF CONSTANT PAIN TO THE RIGHT FOOT. ON EXAMINATION, RIGHT LEG CONTINUES WITH ERRYTHEMA AND SEROUS DRAINAGE TO WOUND ON THE SECOND DIGIT. WOUND DOES NOT APPEAR TO HAVE MADE MUCH PROGRESS IN HEALING OVER THE WEEKEND. HIS VITAL SIGNS THIS MORNING ARE 98.9-84-20-93%-105/63. ABNORMAL LAB VALUES INCLUDE THE FOLLOWING: RBC 4.12, HGB 12.3, HCT 35.4, SODIUM 132, CHLORIDE 97, BUN 20, GLUCOSE 131, ALBUMIN 3.1. TODAY, WE PLAN TO CONSULT WITH [facility] IN [facility] TO CTA RESULTS. OTHERWISE, WE WILL FOLLOW UP WITH AM LABS AND CONTINUE TO MONITOR PATIENT. - Past Medical Family Social History Past Med/Fam/Surg Hx: No changes since H&P Allergies: Allergies No Known Drug Allergies Allergy (Verified 01/17/17 20:08) - Review of Systems ROS: No change since H&P - Vital Signs and I&O's Vital Signs: Temperature 98 F Pulse Rate [Radial] 89 Pulse Rate [Left Dorsalis 108 Pedis] Pulse Rate [Right] 96 Respiratory Rate 18 Blood Pressure [Right Arm] 130/80 O2 Sat by Pulse Oximetry 92 Intake and Output: Intake & Output 01/22/17 01/23/17 01/24/17 01/25/17 11:59 11:59 11:59 11:59 Intake Total 1194 2376 1340 720 Balance 1194 2376 1340 720 - Physical Exam Oriented: Normal Eyes: Normal. negative: Blurred Vision, Diplopia, Discharge, Photophobia Ear: Normal. negative: Swelling, Ecchymosis, Hemotypanum, Abrasion, Laceration Nose: Normal. negative: Discharge Throat: Normal Respiratory: Normal Cardiovascular: Edema (BIALTERAL LOWER EXTREMITY 2+ PITTING EDMA ) : Normal. negative: Hematuria, Testicular Pain, Bleeding Auscultation: Bowel Sounds: Normal Palpation: Normal Tenderness: Normal Skin: Red, Tender, Wound (RIGHT LOWER EXTREMITY, SECOND DIGIT RIGHT FOOT ), Bruising (SCATTERED ) Musculoskeletal: Right, Leg, Foot, Swelling, Tender Psychiatric: Normal Mood Description: Calm Affect: Normal Speech Pattern: Clear, Appropriate - Laboratory and Diagnostics Result Diagrams: 01/24/17 03:45 01/24/17 03:45 Labs: 01/17/17 20:08 Foot - Right Gram Stain - Final 01/17/17 20:08 Foot - Right Wound Culture - Final Pseudomonas Aeruginosa Klebsiella Oxytoca Laboratory WBC 7.2 X10^3/uL (3.6-10.0) 01/24/17 03:45 RBC 4.12 X10^6/uL (4.7-6.0) L 01/24/17 03:45 Hgb 12.3 g/dL (13.5-18.0) L 01/24/17 03:45 Hct 35.4 % (42.0-54.0) L 01/24/17 03:45 MCV 86.0 fL (80.0-100.0) 01/24/17 03:45 MCH 29.9 pg (27.0-34.0) 01/24/17 03:45 MCHC 34.8 g/dL (33.0-35.0) 01/24/17 03:45 RDW 15.1 % (11.6-16.5) 01/24/17 03:45 Plt Count 205 X10^3/uL (150.0-450.0) 01/24/17 03:45 MPV 8.0 fL (7.4-11.0) 01/24/17 03:45 Neut % 61.7 % (42.0-75.0) 01/24/17 03:45 Lymph % 18.7 % (21.0-51.0) L 01/24/17 03:45 Vance % 12.2 % (0.0-13.0) 01/24/17 03:45 Eos % 6.3 % (0.9-2.9) H 01/24/17 03:45 Baso % 1.1 % (0.2-1.0) H 01/24/17 03:45 Neut # 4.4 x10^3/uL (2.2-4.8) 01/24/17 03:45 Lymph # 1.3 X10^3/uL (1.3-2.9) 01/24/17 03:45 Vance # 0.9 x10^3/uL (0.3-0.8) H 01/24/17 03:45 Eos # 0.5 x10^3/uL (0.0-0.2) H 01/24/17 03:45 Baso # 0.1 X10^3/uL (0.0-0.1) 01/24/17 03:45 Absolute Nucleated RBC 0.2 /100WBC 01/24/17 03:45 ESR 25 MM/HOUR (0-15) H 01/21/17 05:12 Sodium 132 mmol/L (136-145) L 01/24/17 03:45 Corrected Sodium 133 mmol/L (136-145) L 01/24/17 03:45 Potassium 4.0 mmol/L (3.5-5.1) 01/24/17 03:45 Chloride 97 mmol/L (98-107) L 01/24/17 03:45 Carbon Dioxide 27.0 mmol/L (21-32) 01/24/17 03:45 BUN 20 mg/dL (7-18) H 01/24/17 03:45 Creatinine 1.20 mg/dL (0.70-1.30) 01/24/17 03:45 Est GFR (MDRD) Af Amer > 60 (>60) 01/24/17 03:45 Est GFR (MDRD) Non-Af > 60 (>60) 01/24/17 03:45 Glucose 131 mg/dL (65-99) H 01/24/17 03:45 POC Glucose (mg/dL) 145 mg/dL (65-99) H 01/24/17 05:42 Uric Acid 4.6 mg/dL (3.5-7.2) 01/17/17 19:54 Calcium 8.7 mg/dL (8.5-10.1) 01/24/17 03:45 Corrected Calcium 9.4 mg/dL (8.5-10.1) 01/24/17 03:45 Total Bilirubin 0.80 mg/dL (0.2-1.0) 01/24/17 03:45 AST 21 Units/L (15-37) 01/24/17 03:45 ALT 42 Units/L (12-78) 01/24/17 03:45 Alkaline Phosphatase 63 Units/L (46-116) 01/24/17 03:45 C-Reactive Protein 25.10 mg/L (0-3.0) H 01/21/17 05:12 Total Protein 6.5 g/dL (6.4-8.2) 01/24/17 03:45 Albumin 3.1 g/dL (3.4-5.0) L 01/24/17 03:45 Globulin 3.4 g/dL (2.5-4.5) 01/24/17 03:45 Albumin/Globulin Ratio 0.9 Ratio (1.1-2.1) L 01/24/17 03:45 - Plan (1) Cellulitis of right lower extremity Status: Acute Plan: MEROPENEM 1GM IV Q8H, OBTAIN CTA OF BILATERAL LOWER EXTREMITIES, CONTINUE TO MONITOR (2) Open wound of second toe of right foot Status: Acute Qualifiers: Encounter type: initial encounter Qualified Code(s): S91.104A - Unspecified open wound of right lesser toe(s) without damage to nail, initial encounter Plan: MEROPENEM 1GM IV Q8H, OBTAIN CTA OF BILATERAL LOWER EXTREMITIES, CONTINUE TO MONITOR (3) Pseudomonas aeruginosa infection Status: Acute Plan: MEROPENEM 1GM IV Q8H, CONTINUE TO MONITOR (4) Infection with ESBL Klebsiella oxytoca Status: Acute Plan: MEROPENEM 1GM IV Q8H, CONTINUE TO MONITOR (5) Hypertension Status: Acute Qualifiers: Hypertension type: essential hypertension Qualified Code(s): I10 - Essential (primary) hypertension Plan: CONTINUE COREG 3.125MG BID, CONTINUE ZESTRIL 2.5MG PO DAILY, CONTINUE TO MONITOR (6) Hypokalemia Status: Chronic Plan: CONTINUE MICRO K 10MEQ DAILY, CONTINUE TO MONITOR (7) Coronary artery disease Status: Chronic Qualifiers: Coronary Disease-Associated Artery/Lesion type: [place] artery [place] vs. transplanted heart: [place] heart Associated angina: with unspecified angina Qualified Code(s): I25.119 - Atherosclerotic heart disease of [place] coronary artery with unspecified angina pectoris Plan: CONTINUE ASPIRIN 81MG DAILY, CONTINUE PLAVIX DAILY, CONTINUE TO MONITOR
[2017-01-24] MEDS: NEURONTIN CAP 100 MG PO SCH (22:24)
[2017-01-25] MEDS: NORCO 5/325 MG TAB PO PRN (05:01)
[2017-01-25] MEDS: MERREM VIAL 1,000 MG in NS 100 ML IV 100 ML IV SCH (05:08)
[2017-01-25 05:20] LABS: ALANINE AMINOTRANSFERASE 36 Units/L (12-78); ALBUMIN 3.2 g/dL (3.4-5.0); ALKALINE PHOSPHATASE 64 Units/L (46-116); ASPARTATE AMINO TRANSFERASE 15 Units/L (15-37); BLOOD UREA NITROGEN 17 mg/dL (7-18); CALCIUM 8.9 mg/dL (8.5-10.1); CARBON DIOXIDE 29.5 mmol/L (21-32); CHLORIDE 96 mmol/L (98-107); COR CA(FOR HYPOALB) 9.5 mg/dL (8.5-10.1); COR NA(FOR HYPERGLY) 134 mmol/L (136-145); CREATININE 1.16 mg/dL (0.70-1.30); SODIUM 133 mmol/L (136-145); TOTAL PROTEIN 6.7 g/dL (6.4-8.2); eGFR BLACK RACES > 60 (>60); eGFR NON BLACK RACES > 60 (>60)
[2017-01-25 05:22] LABS: BASOPHILS # (AUTO) 0.1 X10^3/uL (0.0-0.1); EOSINOPHILS # (AUTO) 0.3 x10^3/uL (0.0-0.2); EOSINOPHILS % (AUTO) 4.3 % (0.9-2.9); HEMATOCRIT 36.5 % (42.0-54.0); HEMOGLOBIN 12.5 g/dL (13.5-18.0); LYMPHOCYTES % (AUTO) 29.2 % (21.0-51.0); MEAN CORPUSCULAR HEMOGLOBIN 29.4 pg (27.0-34.0); MEAN CORPUSCULAR HGB CONC 34.3 g/dL (33.0-35.0); MEAN CORPUSCULAR VOLUME 85.7 fL (80.0-100.0); MEAN PLATELET VOLUME 7.8 fL (7.4-11.0); MONOCYTES # (AUTO) 0.9 x10^3/uL (0.3-0.8); MONOCYTES % (AUTO) 13.3 % (0.0-13.0); NEUTROPHILS # (AUTO) 3.7 x10^3/uL (2.2-4.8); NEUTROPHILS % (AUTO) 52.2 % (42.0-75.0); PLATELET COUNT 240 X10^3/uL (150.0-450.0); RED BLOOD COUNT 4.26 X10^6/uL (4.7-6.0); RED CELL DISTRIBUTION WIDTH 14.9 % (11.6-16.5)
[2017-01-25 08:01] VITALS: BP 155/62
[2017-01-25] MEDS: ASPIRIN EC 81 MG PO SCH (09:36)
[2017-01-25] MEDS: GENTAMICIN TOPICAL CRM TOP SCH (09:36)
[2017-01-25] MEDS: MICRO K EXTEN CAP 10 MEQ PO SCH (09:36)
[2017-01-25] MEDS: COREG TAB 3.125 MG PO SCH (09:36)
[2017-01-25] MEDS: LASIX PO SCH (09:36)
[2017-01-25] MEDS: PLAVIX PO SCH (09:37)
[2017-01-25] MEDS: ZESTRIL TAB 5 MG PO SCH (09:37)
== END 2017-01-25 12:10 | disposition home health service (06) | DRG 603 ==
LOC: MED/SURG 18:52 → OBSVTOIN 01-19 08:30
PROVIDERS: ADMIT Internal Medicine; ATTEND Internal Medicine
DX: L03.115 Cellulitis of right lower limb (principal); R60.0 Localized edema; S91.104A Unspecified open wound of right lesser toe(s) without damage to nail, initial encounter; M13.89 Other specified arthritis, multiple sites; I25.119 Atherosclerotic heart disease of native coronary artery with unspecified angina pectoris; E11.65 Type 2 diabetes mellitus with hyperglycemia; K21.9 Gastro-esophageal reflux disease without esophagitis; I10 Essential (primary) hypertension; B96.5 Pseudomonas (aeruginosa) (mallei) (pseudomallei) as the cause of diseases classified elsewhere; B96.89 Other specified bacterial agents as the cause of diseases classified elsewhere; X58.XXXA Exposure to other specified factors, initial encounter; E87.6 Hypokalemia; Z79.1 Long term (current) use of non-steroidal anti-inflammatories (NSAID)
CPT/HCPCS: 36415; 73706; 80053; 84550; 85025; 85652; 86140; 87070; 87075; 87077; 87186; 87205; 99231; A4222; G0378; J0696; J2185; J2405; J2543; J3370; J7608